=== PATIENT | male | born 1975 | race Caucasian/White ===

== ENCOUNTER 2017-07-24 18:06 | Inpatient (IN) | payer OTHER ==
[2017-07-24] MEDS: ASPIRIN 325 MG TAB PO (20:32)
[2017-07-24] MEDS: NITROGLYCERIN 2% 1 GM OINT PKT TD (20:33)
[2017-07-24 20:39] LABS: ADD MAN DIFF? NO
[2017-07-24 20:41] LABS: BASOPHILS % 0.3 % (0.0-2.0); EOSINOPHILS % 0.4 % (0.0-7.0); HEMATOCRIT 45.9 % (42.0-52.0); HEMOGLOBIN 15.4 g/dl (14.0-18.0); LYMPHOCYTES # 2.4 10^3/ul (0.8-2.9); LYMPHOCYTES % 32.7 % (15.0-51.0); MEAN CORPUSCULAR HEMOGLOBIN 29.5 pg (29.0-33.0); MEAN CORPUSCULAR HGB CONC 33.6 g/dl (32.0-37.0); MEAN CORPUSCULAR VOLUME 87.9 fl (82.0-101.0); MEAN PLATELET VOLUME 10.5 fl (7.4-10.4); MONOCYTE # 0.5 10^3/ul (0.3-0.9); MONOCYTES % 7.4 % (0.0-11.0); NEUTROPHIL # 4.3 10^3/ul (1.6-7.5); NEUTROPHILS % 58.9 % (39.0-77.0); PLATELET COUNT 243 10^3/UL (140-415); RED BLOOD COUNT 5.22 10^6/ul (4.70-6.10)
[2017-07-24 20:41] LABS: WHITE BLOOD COUNT 7.2 10^3/ul (4.8-10.8)
[2017-07-24 20:44] LABS: PARTIAL THROMBOPLASTIN TIME 27.4 Sec (25.0-35.0); PROTIME 12.2 Sec (11.9-14.9)
[2017-07-24 20:50] LABS: ALANINE AMINOTRANSFERASE 47 IU/L (13-69); ALBUMIN/GLOBULIN RATIO 1.19; ALKALINE PHOSPHATASE 71 IU/L (42-121); ANION GAP 19 (8-16); ASPARTATE AMINO TRANSFERASE 36 IU/L (15-46); BILIRUBIN,INDIRECT 0.3 mg/dl (0-1.1); BILIRUBIN,TOTAL 0.3 mg/dl (0.2-1.3); BLOOD UREA NITROGEN 16 mg/dl (7-20); CALCIUM 9.9 mg/dl (8.4-10.2); CARBON DIOXIDE 26 mmol/L (21-31); CHLORIDE 103 mmol/L (97-110); CREATINE KINASE 89 IU/L (23-200); CREATININE 1.08 mg/dl (0.61-1.24); GLUCOSE 98 mg/dl (70-220); POTASSIUM 4.1 mmol/L (3.5-5.1); SODIUM 144 mmol/L (135-144); TOTAL PROTEIN 9.2 g/dl (6.1-8.1)
[2017-07-24 21:02] LABS: B-TYPE NATRIURETIC PEPTIDE 14 PG/ML (0-125); TROPONIN-I < 0.012 ng/ml (0.000-0.120)
[2017-07-24 21:27] LABS: CK INDEX 0.4
[2017-07-24 21:28] LABS: CK-MB 0.32 ng/ml (0.0-2.4)
[2017-07-24] MEDS: SOD CHLORIDE 0.9% 100 ML (21:54)
[2017-07-24] MEDS: IOHEXOL 100 ML (21:54)
[2017-07-24] MEDS ORDERED: ACETAMINOPHEN 325 MG TAB PO ×2 (22:00)
[2017-07-24] MEDS ORDERED: morphine 2 MG INJ IV (22:00)
[2017-07-24] MEDS ORDERED: NACL 0.9% 3 ML SYG IV (22:00)
[2017-07-24] MEDS ORDERED: NITROGLYCERIN (SL) 0.4 MG TAB SL (22:00)
[2017-07-24] MEDS ORDERED: ONDANSETRON 4 MG INJ IV ×2 (22:00)
[2017-07-24 22:28] LABS: ETHANOL < 10.0 mg/dl
[2017-07-25 05:57] LABS: ADD MAN DIFF? NO
[2017-07-25 06:01] LABS: WHITE BLOOD COUNT 6.2 10^3/ul (4.8-10.8)
[2017-07-25 06:01] LABS: BASOPHILS % 0.3 % (0.0-2.0); EOSINOPHILS % 0.6 % (0.0-7.0); HEMATOCRIT 41.4 % (42.0-52.0); HEMOGLOBIN 13.8 g/dl (14.0-18.0); LYMPHOCYTES # 2.1 10^3/ul (0.8-2.9); LYMPHOCYTES % 33.9 % (15.0-51.0); MEAN CORPUSCULAR HEMOGLOBIN 29.4 pg (29.0-33.0); MEAN CORPUSCULAR HGB CONC 33.3 g/dl (32.0-37.0); MEAN CORPUSCULAR VOLUME 88.1 fl (82.0-101.0); MEAN PLATELET VOLUME 10.3 fl (7.4-10.4); MONOCYTE # 0.5 10^3/ul (0.3-0.9); MONOCYTES % 8.2 % (0.0-11.0); NEUTROPHIL # 3.5 10^3/ul (1.6-7.5); NEUTROPHILS % 56.7 % (39.0-77.0); PLATELET COUNT 200 10^3/UL (140-415); RED CELL DISTRIBUTION WIDTH 12.9 % (11.5-14.5)
[2017-07-25 06:35] LABS: CREATINE KINASE 72 IU/L (23-200)
[2017-07-25 06:43] LABS: ALANINE AMINOTRANSFERASE 41 IU/L (13-69); ALBUMIN 4.3 g/dl (3.3-4.9); ALBUMIN/GLOBULIN RATIO 1.22; ALKALINE PHOSPHATASE 57 IU/L (42-121); ANION GAP 15 (8-16); ASPARTATE AMINO TRANSFERASE 24 IU/L (15-46); BILIRUBIN,INDIRECT 0.6 mg/dl (0-1.1); BILIRUBIN,TOTAL 0.6 mg/dl (0.2-1.3); BLOOD UREA NITROGEN 17 mg/dl (7-20); CALCIUM 9.5 mg/dl (8.4-10.2); CARBON DIOXIDE 29 mmol/L (21-31); CHLORIDE 104 mmol/L (97-110); CHOL/HDL RATIO 6.4 RATIO; CHOLESTEROL 201 mg/dl (100-200); GLUCOSE 104 mg/dl (70-220); HDL CHOLESTEROL 31 mg/dl (27-67); MAGNESIUM 1.9 mg/dl (1.7-2.5); POTASSIUM 4.3 mmol/L (3.5-5.1); SODIUM 144 mmol/L (135-144); TOTAL PROTEIN 7.8 g/dl (6.1-8.1)
[2017-07-25 06:48] LABS: CK INDEX 0.3
[2017-07-25 06:51] LABS: CK-MB < 0.22 ng/ml (0.0-2.4); TROPONIN-I < 0.012 ng/ml (0.000-0.120)
[2017-07-25 07:17] LABS: LDL CHOLESTEROL,CALCULATED 61 mg/dl; TRIGLYCERIDES 545 mg/dl (0-149)
[2017-07-25 08:02] LABS: HEMOGLOBIN A1C 5.5 % (0-5.9)
[2017-07-25 12:41] LABS: CREATINE KINASE 78 IU/L (23-200)
[2017-07-25 12:55] LABS: CK INDEX 0.3
[2017-07-25 13:06] LABS: CK-MB < 0.22 ng/ml (0.0-2.4); TROPONIN-I < 0.012 ng/ml (0.000-0.120)
[2017-07-25] MEDS ORDERED: morphine LIQ (10 MG/5 ML) CUP PO (15:00)
== END 2017-07-25 17:09 | disposition home or self-care (01) | DRG 313 ==
LOC: E/R 18:06 → MS3 21:48
DX: R07.89 Other chest pain (principal); E78.5 Hyperlipidemia, unspecified; E66.9 Obesity, unspecified; Z68.35 Body mass index [BMI] 35.0-35.9, adult; R06.83 Snoring; I10 Essential (primary) hypertension
CPT/HCPCS: 71045; 71275; 80053; 80061; 80307; 82550; 82553; 83036; 83735; 83880; 84443; 84484; 85025; 85610; 85730; 93005; 93306; 99285-25